=== PATIENT | female | born 1940 | race Caucasian/White ===

== ENCOUNTER 2017-04-15 06:27 | Emergency (ER) | payer MEDICARE ==
[~2017-04-15] VITALS: Ht 157.5 cm; Wt 65.8 kg
[2017-04-15 06:27] VITALS: BP_SYST 170
--- NOTE | 2017-04-15 06:27 | NUR ---
Patient to ER bed 5 to gown for evaluation. Side rails up. Report given to JASMIN VÁZQUEZ.
--- NOTE | 2017-04-15 06:28 | NUR ---
MADELIN Erwin at bedside examining patient.
--- NOTE | 2017-04-15 06:28 | NUR ---
Pt's son stated that she had some water and started saying she could not breathe. Pt was very anxious and he called 911. Upon assessment, pt seems very anxious. No evidence of respritory distress. Will continue to monitor. No other injuries or complaints mentioned/noted.
[2017-04-15] MEDS ORDERED: LEVO25TA7 PO (06:38)
[2017-04-15] MEDS ORDERED: LEVE500T13 PO (06:41)
[2017-04-15] MEDS ORDERED: PRO40 PO (06:41)
[2017-04-15] MEDS ORDERED: GLUXR500 PO (06:41)
[2017-04-15] MEDS ORDERED: BENA40TA2 PO (06:41)
--- NOTE | 2017-04-15 06:42 | NUR ---
Medication reconciliation completed with information provided by PATIENT. Any prior medication reconciliation on file was reviewed and corrected.
[2017-04-15] MEDS ORDERED: ONDANSETRON HCL 4 MG/2 ML VIAL IVP ONE (06:45)
[2017-04-15] MEDS ORDERED: LORazepam 2 MG/ML VIAL IVP ONE (06:45)
--- NOTE | 2017-04-15 06:45 | NUR ---
# 20 gauge angiocath placed to L AC. Use of asceptic technique. Opsite placed over site. Blood return noted. Flushed with 10 cc of normal saline. No evidence of infiltration noted. Patient tolerated well.
[2017-04-15] MEDS ORDERED: LORazepam 2 MG/ML VIAL (FOR ER USE) ONE (06:48)
--- NOTE | 2017-04-15 07:12 | NUR ---
Pt resting comfortably in bed. Family at bedside.
[2017-04-15 07:42] VITALS: BP_SYST 140
--- NOTE | 2017-04-15 07:42 | NUR ---
Patient given written and verbal discharge instructions and verbalizes understanding. ER MD discussed with patient the results and treatment provided. Patient in stable condition. ID arm band removed. IV catheter removed intact and dressing applied, no active bleeding. No Rx given. Patient educated on pain management and to follow up with PMD. Pain Scale 0. Opportunity for questions provided and answered.
== END 2017-04-15 07:42 | disposition home or self-care (01) ==
LOC: SED 06:27
DX: R09.89 Other specified symptoms and signs involving the circulatory and respiratory systems (principal); F03.90 Unspecified dementia, unspecified severity, without behavioral disturbance, psychotic disturbance, mood disturbance, and anxiety; R06.02 Shortness of breath; E11.9 Type 2 diabetes mellitus without complications; I10 Essential (primary) hypertension; Z88.0 Allergy status to penicillin; Z79.899 Other long term (current) drug therapy
CPT/HCPCS: 71010; 96374; 96375; 99284; J2060; J2405

== ENCOUNTER 2019-04-13 11:13 | Inpatient (IN) | payer BC ==
[~2019-04-13] VITALS: Ht 157.5 cm; Wt 77.6 kg
[~2019-04-13 11:13] MED LIST: BENA40TA8 PO; GLUXR500 PO; LEVE500T9 PO; LEVO25TA7 PO; PRO40 PO
[2019-04-13 11:18] VITALS: BP_SYST 107
[2019-04-13] MEDS ORDERED: NACL 0.9% 1,000 ML IV ONE ×3 (12:00→14:30)
[2019-04-13 12:11] LABS: BASOPHILS # (AUTO) 0.1 K/uL (0.0-0.2); BASOPHILS % (AUTO) 0.8 % (0.0-2.0); EOSINOPHILS % (AUTO) 0.2 % (0.0-4.0); HEMATOCRIT 31.3 % (36-48); HEMOGLOBIN 10.8 g/dL (12.0-16.0); LYMPHOCYTES # (AUTO) 0.9 K/uL (1.0-5.5); LYMPHOCYTES % (AUTO) 7.5 % (20.5-51.5); MEAN CORPUSCULAR HEMOGLOBIN 34 pg (27-31); MEAN CORPUSCULAR HGB CONC 35 % (32-36); MEAN CORPUSCULAR VOLUME 97 fL (79.0-98.0); MONOCYTES # (AUTO) 0.8 K/uL (0.0-1.0); MONOCYTES % (AUTO) 6.6 % (1.7-9.3); NEUTROPHILS # (AUTO) 10.3 K/uL (1.8-7.7); NEUTROPHILS % (AUTO) 84.9 % (40.0-70.0); PLATELET COUNT (AUTO) 246 K/uL (130-430); RED BLOOD CELL COUNT(AUTO) 3.24 MIL/uL (4.2-6.2); RED CELL DISTRIBUTION WIDTH 13.3 % (9.0-15.0); WHITE BLOOD COUNT (AUTO) 12.1 K/uL (4.8-10.8)
[2019-04-13 12:53] LABS: BILIRUBIN,URINE NEGATIVE (NEGATIVE); BLOOD, URINE NEGATIVE (NEGATIVE); CLARITY/URINE CLOUDY (CLEAR); COLOR,URINE YELLOW (YELLOW); GLUCOSE,URINE NEGATIVE (NEGATIVE); KETONES,URINE NEGATIVE (NEGATIVE); LEUKOCYTE ESTERASE ,URINE 1+ (NEGATIVE); NITRITE, URINE NEGATIVE (NEGATIVE); PH,URINE 6.5 (5.0-8.0); PROTEIN URINE TRACE (NEGATIVE)
[2019-04-13 12:58] LABS: BACTERIA,URINE MANY /HPF (None Seen); RBC,URINE 0-3 /HPF (0-3); WBC,URINE 20-50 /HPF (0-3)
[2019-04-13] MEDS ORDERED: LEVOFLOXACIN 500 MG/D5W 100 ML IV ONE (13:00)
[2019-04-13] MEDS ORDERED: NS 500 ML IV ONE (13:00)
[2019-04-13 13:20] LABS: ALANINE AMINOTRANSFERASE 15 U/L (12-78); ALBUMIN 3.4 g/dL (3.4-4.8); ANION GAP 10 (5-15); ASPARTATE AMINOTRANSFERASE 13 U/L (10-37); CALCIUM 8.6 mg/dL (8.4-11.0); CHLORIDE 101 mmol/L (98-107); CREATININE 0.85 mg/dL (0.55-1.30); GLUCOSE 196 mg/dL (70-99); POTASSIUM 3.7 mmol/L (3.5-5.1); SODIUM SERUM 135 mmol/L (136-145); TOTAL BILIRUBIN 0.6 mg/dL (0.0-1.0); UREA NITROGEN, BLOOD 21 mg/dL (8-21)
[2019-04-13] MEDS ORDERED: ESCI10TA PO (14:00)
[2019-04-13] MEDS ORDERED: SER100 PO (14:00)
[2019-04-13] MEDS ORDERED: LOSA100T3 PO (14:00)
[2019-04-13] MEDS ORDERED: PANTOPRAZOLE SODIUM 40 MG TAB PO PRN (14:15)
[2019-04-13] MEDS ORDERED: DEXTROSE 50% JECT 50 ML DISP.SYRIN IVP PRN (14:15)
[2019-04-13] MEDS ORDERED: NACL 0.9% 1,000 ML IV SCH (14:15)
[2019-04-13] MEDS ORDERED: cefTRIAXone 1 GM in D5W 50 ML IV ONE (14:45)
[2019-04-13] MEDS ORDERED: QUEtiapine FUMARATE 100 MG TABLET PO ONE (14:45)
[2019-04-13] MEDS ORDERED: CEFTRIAXONE SOD 1 GM/ D5W 50 ML IV ONE ×2 (15:15)
[2019-04-13 15:39] VITALS: BP_SYST 120
[2019-04-13] MEDS: LORazepam 2 MG/ML VIAL IVP PRN (16:16)
[2019-04-13] MEDS ORDERED: MECLIZINE HCL 25 MG TABLET (ANITVERT) PO PRN (19:30)
[2019-04-13 20:00] VITALS: BP_SYST 154
[2019-04-13 20:13] LABS: TOTAL IRON BIND. CAPACITY 178 ug/dL (250-450)
[2019-04-13] MEDS: levETIRAcetam 500 MG TABLET PO SCH (21:00)
[2019-04-13] MEDS ORDERED: QUEtiapine FUMARATE 100 MG TABLET PO SCH (21:00)
[2019-04-14] VITALS: BP_SYST 149
[2019-04-14 07:56] LABS: BASOPHILS # (AUTO) 0.1 K/uL (0.0-0.2); BASOPHILS % (AUTO) 1.1 % (0.0-2.0); EOSINOPHILS # (AUTO) 0.2 K/uL (0.0-0.4); EOSINOPHILS % (AUTO) 2.6 % (0.0-4.0); HEMATOCRIT 28.6 % (36-48); HEMOGLOBIN 10.1 g/dL (12.0-16.0); LYMPHOCYTES # (AUTO) 1.6 K/uL (1.0-5.5); MEAN CORPUSCULAR HEMOGLOBIN 34 pg (27-31); MEAN CORPUSCULAR HGB CONC 35 % (32-36); MEAN CORPUSCULAR VOLUME 97 fL (79.0-98.0); MONOCYTES # (AUTO) 0.9 K/uL (0.0-1.0); NEUTROPHILS # (AUTO) 4.8 K/uL (1.8-7.7); NEUTROPHILS % (AUTO) 63.3 % (40.0-70.0); PLATELET COUNT (AUTO) 180 K/uL (130-430); RED BLOOD CELL COUNT(AUTO) 2.97 MIL/uL (4.2-6.2); RED CELL DISTRIBUTION WIDTH 13.1 % (9.0-15.0); WHITE BLOOD COUNT (AUTO) 7.6 K/uL (4.8-10.8)
[2019-04-14 08:00] VITALS: BP_SYST 146
[2019-04-14 08:04] LABS: ANION GAP 6 (5-15); CALCIUM 8.3 mg/dL (8.4-11.0); CHLORIDE 105 mmol/L (98-107); CREATININE 0.52 mg/dL (0.55-1.30); GLUCOSE 112 mg/dL (70-99); POTASSIUM 3.4 mmol/L (3.5-5.1); SODIUM SERUM 135 mmol/L (136-145); UREA NITROGEN, BLOOD 10 mg/dL (8-21)
[2019-04-14 08:45] VITALS: BP_SYST 162
[2019-04-14] MEDS ORDERED: CITALOPRAM HYDROBROMIDE 20 MG TABLET PO SCH (09:00)
[2019-04-14 10:58] VITALS: BP_SYST 143
[2019-04-14] MEDS: QUEtiapine FUMARATE 25 MG TABLET PO SCH ×2 (11:13→21:27)
[2019-04-14] MEDS: ATORVASTATIN 10 MG TABLET PO SCH (11:14)
[2019-04-14] MEDS: CITALOPRAM HYDROBROMIDE 20 MG TABLET PO SCH (11:16)
[2019-04-14] MEDS: LOSARTAN POTASSIUM 50 MG TABLET (COZAAR) PO SCH (11:21)
[2019-04-14] MEDS: levETIRAcetam 500 MG TABLET PO SCH ×2 (11:23→21:26)
[2019-04-14] MEDS: LEVOTHYROXINE SODIUM 0.025 MG TABLET PO SCH (11:25)
[2019-04-14] MEDS ORDERED: cefTRIAXone 500 MG VIAL IV SCH (15:00)
[2019-04-14] MEDS ORDERED: cefTRIAXone 1 GM IVPB PREMIX 50 ML IV SCH (15:00)
[2019-04-14] MEDS: CEFTRIAXONE SOD 1 GM/ D5W 50 ML IV SCH ×2 (16:02)
[2019-04-14 16:09] VITALS: BP_SYST 144
[2019-04-14 23:43] VITALS: BP_SYST 137
[2019-04-15 07:36] LABS: BASOPHILS # (AUTO) 0.1 K/uL (0.0-0.2); BASOPHILS % (AUTO) 2.1 % (0.0-2.0); EOSINOPHILS # (AUTO) 0.4 K/uL (0.0-0.4); EOSINOPHILS % (AUTO) 6.1 % (0.0-4.0); HEMATOCRIT 28.6 % (36-48); HEMOGLOBIN 9.9 g/dL (12.0-16.0); LYMPHOCYTES # (AUTO) 1.7 K/uL (1.0-5.5); LYMPHOCYTES % (AUTO) 28.3 % (20.5-51.5); MEAN CORPUSCULAR HEMOGLOBIN 33 pg (27-31); MEAN CORPUSCULAR HGB CONC 35 % (32-36); MEAN CORPUSCULAR VOLUME 96 fL (79.0-98.0); MONOCYTES # (AUTO) 0.7 K/uL (0.0-1.0); MONOCYTES % (AUTO) 10.7 % (1.7-9.3); NEUTROPHILS # (AUTO) 3.3 K/uL (1.8-7.7); NEUTROPHILS % (AUTO) 52.8 % (40.0-70.0); PLATELET COUNT (AUTO) 190 K/uL (130-430); RED BLOOD CELL COUNT(AUTO) 2.98 MIL/uL (4.2-6.2); RED CELL DISTRIBUTION WIDTH 13.2 % (9.0-15.0); WHITE BLOOD COUNT (AUTO) 6.2 K/uL (4.8-10.8)
[2019-04-15 08:00] VITALS: BP_SYST 142
[2019-04-15 08:05] LABS: ANION GAP 6 (5-15); CALCIUM 8.5 mg/dL (8.4-11.0); CHLORIDE 103 mmol/L (98-107); GLUCOSE 84 mg/dL (70-99); POTASSIUM 3.3 mmol/L (3.5-5.1); SODIUM SERUM 136 mmol/L (136-145); UREA NITROGEN, BLOOD 12 mg/dL (8-21)
[2019-04-15 08:23] VITALS: BP_SYST 142
[2019-04-15] MEDS: LEVOTHYROXINE SODIUM 0.025 MG TABLET PO SCH (11:00)
[2019-04-15] MEDS: QUEtiapine FUMARATE 25 MG TABLET PO SCH (11:00)
[2019-04-15] MEDS: ATORVASTATIN 10 MG TABLET PO SCH (11:00)
[2019-04-15] MEDS: levETIRAcetam 500 MG TABLET PO SCH ×2 (11:01→21:26)
[2019-04-15] MEDS: LOSARTAN POTASSIUM 50 MG TABLET (COZAAR) PO SCH (11:01)
[2019-04-15] MEDS: CITALOPRAM HYDROBROMIDE 20 MG TABLET PO SCH (11:02)
[2019-04-15] MEDS ORDERED: POTASSIUM CHLORIDE 40 MEQ in NS 250 ML IV PRN (11:30)
[2019-04-15 12:30] VITALS: BP_SYST 149
[2019-04-15] MEDS: LORazepam 2 MG/ML VIAL IVP PRN (15:03)
[2019-04-15] MEDS: CEFTRIAXONE SOD 1 GM/ D5W 50 ML IV SCH ×2 (15:07)
[2019-04-15 15:10] VITALS: BP_SYST 130
[2019-04-15] MEDS ORDERED: MORPHINE 2 MG/ML INJ. SYRINGE IVP ONE (17:30)
[2019-04-15] MEDS ORDERED: QUEtiapine FUMARATE 100 MG TABLET PO SCH ×2 (18:00→20:00)
[2019-04-15 20:00] VITALS: BP_SYST 142
[2019-04-15] MEDS: NACL 0.9% 500 ML IV SCH (21:26)
[2019-04-16 00:03] VITALS: BP_SYST 152
[2019-04-16] MEDS ORDERED: NACL 0.9% 500 ML IV SCH (03:45)
[2019-04-16] MEDS: NACL 0.9% 500 ML IV SCH ×2 (05:35→14:25)
[2019-04-16 08:16] LABS: FOLATE (FOLIC ACID) 8.8 ng/mL (>3.0)
[2019-04-16 08:30] VITALS: BP_SYST 116
[2019-04-16] MEDS ORDERED: QUEtiapine FUMARATE 25 MG TABLET PO SCH (09:00)
[2019-04-16 09:03] LABS: BASOPHILS # (AUTO) 0.2 K/uL (0.0-0.2); BASOPHILS % (AUTO) 3.1 % (0.0-2.0); EOSINOPHILS # (AUTO) 0.3 K/uL (0.0-0.4); EOSINOPHILS % (AUTO) 6.7 % (0.0-4.0); HEMATOCRIT 30.4 % (36-48); HEMOGLOBIN 10.4 g/dL (12.0-16.0); LYMPHOCYTES # (AUTO) 1.6 K/uL (1.0-5.5); LYMPHOCYTES % (AUTO) 31.6 % (20.5-51.5); MEAN CORPUSCULAR HEMOGLOBIN 33 pg (27-31); MEAN CORPUSCULAR HGB CONC 34 % (32-36); MEAN CORPUSCULAR VOLUME 96 fL (79.0-98.0); MONOCYTES # (AUTO) 0.5 K/uL (0.0-1.0); MONOCYTES % (AUTO) 9.8 % (1.7-9.3); NEUTROPHILS # (AUTO) 2.4 K/uL (1.8-7.7); NEUTROPHILS % (AUTO) 48.8 % (40.0-70.0); PLATELET COUNT (AUTO) 209 K/uL (130-430); RED BLOOD CELL COUNT(AUTO) 3.17 MIL/uL (4.2-6.2); RED CELL DISTRIBUTION WIDTH 13.1 % (9.0-15.0)
[2019-04-16 09:12] LABS: ANION GAP 8 (5-15); CALCIUM 8.7 mg/dL (8.4-11.0); CHLORIDE 103 mmol/L (98-107); CREATININE 0.55 mg/dL (0.55-1.30); GLUCOSE 78 mg/dL (70-99); POTASSIUM 3.7 mmol/L (3.5-5.1); SODIUM SERUM 139 mmol/L (136-145); UREA NITROGEN, BLOOD 10 mg/dL (8-21)
[2019-04-16] MEDS: LEVOTHYROXINE SODIUM 0.025 MG TABLET PO SCH (09:24)
[2019-04-16] MEDS: CITALOPRAM HYDROBROMIDE 20 MG TABLET PO SCH (09:24)
[2019-04-16] MEDS: ATORVASTATIN 10 MG TABLET PO SCH (09:24)
[2019-04-16] MEDS: LOSARTAN POTASSIUM 50 MG TABLET (COZAAR) PO SCH (09:25)
[2019-04-16] MEDS: levETIRAcetam 500 MG TABLET PO SCH (09:25)
[2019-04-16 11:20] VITALS: BP_SYST 132
[2019-04-16] MEDS: INSULIN LISPRO SLIDING SCALE 100 UNITS/ML VIAL (humaLOG) SUBCUT PRN ×2 (12:05→17:30)
[2019-04-16] MEDS: LORazepam 2 MG/ML VIAL IVP PRN (13:54)
[2019-04-16] MEDS: CEFTRIAXONE SOD 1 GM/ D5W 50 ML IV SCH ×2 (14:25)
[2019-04-16 15:31] VITALS: BP_SYST 137
[2019-04-16 16:32] VITALS: BP_SYST 137
[2019-04-17 14:35] LABS: SOLUBLE TRANSFERRIN RECEPTOR 8.2 nmol/L (12.2-27.3)
== END 2019-04-16 18:20 | disposition home health service (06) | DRG 871 ==
LOC: SED 11:13 → SMU 14:19
PROVIDERS: ADMIT General Practice; ATTEND General Practice
DX: A41.9 Sepsis, unspecified organism (principal); G93.41 Metabolic encephalopathy; N39.0 Urinary tract infection, site not specified; F02.81 Dementia in other diseases classified elsewhere, unspecified severity, with behavioral disturbance; G40.909 Epilepsy, unspecified, not intractable, without status epilepticus; B96.20 Unspecified Escherichia coli [E. coli] as the cause of diseases classified elsewhere; D64.9 Anemia, unspecified; E03.9 Hypothyroidism, unspecified; E11.9 Type 2 diabetes mellitus without complications; F32.9 Major depressive disorder, single episode, unspecified; I25.10 Atherosclerotic heart disease of native coronary artery without angina pectoris; F39 Unspecified mood [affective] disorder; F29 Unspecified psychosis not due to a substance or known physiological condition; E87.6 Hypokalemia; G30.9 Alzheimer's disease, unspecified; I10 Essential (primary) hypertension; K21.9 Gastro-esophageal reflux disease without esophagitis; Z82.3 Family history of stroke; Z82.49 Family history of ischemic heart disease and other diseases of the circulatory system; Z83.3 Family history of diabetes mellitus; Z88.0 Allergy status to penicillin; Z79.899 Other long term (current) drug therapy
CPT/HCPCS: 36415; 70450-TC; 71045; 80048; 80053; 81000-TC; 82140-TC; 82607; 82746; 82962; 83036; 83540-TC; 83550-TC; 83605; 83735-TC; 84238; 84484; 85025; 85044-TC; 87040-TC; 87086; 87186-TC; 93005; 93306; 93880; 96361; 96365; 99291; J0696; J1956; J2060; J3480; J7030; J7040; J7050; J7060